=== PATIENT | male | born 1960 | race Hispanic/Latino ===

== ENCOUNTER 2020-11-06 16:55 | Emergency (ER) | payer OTHER ==
[~2020-11-06] VITALS: Ht 182.9 cm; Wt 104.3 kg
[2020-11-06 20:26] VITALS: BP 139/75
[2020-11-06] MEDS ORDERED: SULF1TAB42 PO (20:29)
[2020-11-06] MEDS ORDERED: MELO7.5T12 PO (20:29)
== END 2020-11-06 20:49 | disposition home or self-care (01) ==
LOC: EDH 16:55
DX: S50.01XA Contusion of right elbow, initial encounter (principal); M71.521 Other bursitis, not elsewhere classified, right elbow; E11.9 Type 2 diabetes mellitus without complications; Z79.899 Other long term (current) drug therapy; W22.8XXA Striking against or struck by other objects, initial encounter; Y93.89 Activity, other specified; Y92.89 Other specified places as the place of occurrence of the external cause; Y99.0 Civilian activity done for income or pay
CPT/HCPCS: 73070